=== PATIENT | female | born 1970 | race Caucasian/White ===

== ENCOUNTER 2017-02-13 20:23 | Emergency (ER) | payer SELFPAY ==
[2017-02-13 20:23] VITALS: BMI 21.1
[2017-02-13 20:37] VITALS: RESP 16; TEMP 98.5
[2017-02-13 22:22] LABS: BASO % 0.7 % (0.0-2.0); EOS # 0.2 K/uL (0.0-0.7); EOS % 4.1 % (0.0-4.0); HEMATOCRIT 32.4 % (34.0-47.0); LYMPH # 1.6 K/uL (1.0-4.3); LYMPH % 32.1 % (20.0-40.0); MEAN CORPUSCULAR HEMOGLOBIN 24.3 pg (27.0-31.0); MEAN CORPUSCULAR HGB CONC 31.1 g/dL (33.0-37.0); MEAN PLATELET VOLUME 7.9 fl (7.2-11.7); MONO % 18.6 % (0.0-10.0); NEUT # 2.3 K/uL (1.8-7.0); NEUT % 44.5 % (50.0-75.0); NRBC % 0.1 % (0.0-0.0); RED CELL DISTRIBUTION WIDTH 17.7 % (11.5-14.5); WHITE BLOOD COUNT 5.1 K/uL (4.8-10.8)
--- NOTE | 2017-02-13 22:29 | ED PDOC ---
HPI: Chest Pain Time Seen by Provider: 02/13/17 21:32 Chief Complaint (Nursing): Chest Pain History Per: Patient (presents for evaluation of chest pain that is intermittent and pressure like. She has a h/o hypertension but has been non- compliant with meds. She denies dizziness.) History/Exam Limitations: no limitations Onset/Duration Of Symptoms: Days (4), Waxing/Waning, Intermittent Episodes Current Symptoms Are (Timing): Still Present Severity: Moderate Quality: Pressure Associated Symptoms: denies: Nausea, Dyspnea, Diaphoresis, Syncope Modifying Factors: None Past Medical History Reviewed: Historical Data, Nursing Documentation, Vital Signs Vital Signs: Last Vital Signs Temp 98.5 F 02/13/17 20:35 Pulse 77 02/13/17 22:42 Resp 16 02/13/17 20:35 BP 153/107 H 02/13/17 22:42 Pulse Ox 100 02/13/17 23:08 - Medical History PMH: Anemia, HTN - Surgical History Surgical History: No Surg Hx - Family History Family History: States: No Known Family Hx, Hypertension - Living Arrangements Living Arrangements: With Family - Social History Current smoker - smoking cessation education provided: Yes - Immunization History Hx Tetanus Toxoid Vaccination: No Hx Influenza Vaccination: No Hx Pneumococcal Vaccination: No - Home Medications Home Medications: Ambulatory Orders Medication Instructions Recorded Ferrous Sulfate 325 mg PO BID #60 tab 12/10/13 Famotidine [Pepcid] 20 mg PO BID #14 tab 07/14/14 Lisinopril 10 mg DAILY 07/14/14 Cyclobenzaprine [Cyclobenzaprine 10 mg PO HS #14 tab 12/16/16 HCl] Losartan [Cozaar] 50 mg PO DAILY #30 tab 12/16/16 Naproxen 500 mg PO BID #28 tab 12/16/16 Losartan [Cozaar] 50 mg PO DAILY #30 tab 02/13/17 - Allergies Allergies/Adverse Reactions: Allergies Allergy/AdvReac Type Severity Reaction Status Date / Time No Known Allergies Allergy Verified 02/13/17 20:35 ENRRIQUE Risk Score for UA/NSTEMI - ENRRIQUE Risk Score Age > 64: NO 3 or more CAD Risk Factors: NO Known CAD (Stenosis greater than 50%): NO Aspirin use in past 7 days: NO Severe Angina: NO EKG ST changes greater than 0.5mm: NO Positive Cardiac Marker: NO ENRRIQUE Score: 0 Risk %: 5% Review of Systems ROS Statement: Except As Marked, All Systems Reviewed And Found Negative Cardiovascular: Positive for: Chest Pain. Negative for: Palpitations Respiratory: Negative for: Cough, Shortness of Breath, SOB with Exertion Physical Exam - Reviewed Nursing Documentation Reviewed: Yes Vital Signs Reviewed: Yes - Physical Exam Appears: Positive for: Well, Non-toxic, No Acute Distress Head Exam: Positive for: ATRAUMATIC, NORMAL INSPECTION, NORMOCEPHALIC Skin: Positive for: Normal Color, Warm, DRY Eye Exam: Positive for: EOMI, Normal appearance, PERRL ENT: Positive for: Normal ENT Inspection Neck: Positive for: Normal, Painless ROM Cardiovascular/Chest: Positive for: Regular Rate, Rhythm Respiratory: Positive for: CNT, Normal Breath Sounds Gastrointestinal/Abdominal: Positive for: Normal Exam, Bowel Sounds, Soft Back: Positive for: Normal Inspection Extremity: Positive for: Normal ROM Neurologic/Psych: Positive for: Alert, Oriented - Laboratory Results Result Diagrams: 02/13/17 21:13 02/13/17 21:13 - ECG O2 Sat by Pulse Oximetry: 100 Medical Decision Making Medical Decision Making: patient is asymptomatic. labs and EKG are normal. Will d/c with followup in the clinic. Will give rx for amlodipine. Disposition - Clinical Impression Clinical Impression: Chest pain - Patient ED Disposition Is Patient to be Admitted: No Doctor Will See Patient In The: Office Counseled Patient/Family Regarding: Diagnosis, Need For Followup, Rx Given - Disposition Referrals: [facility] [Outside] [facility] [Outside] Disposition: Routine/Home Disposition Time: 22:05 Condition: STABLE Prescriptions: Losartan [Cozaar] 50 mg PO DAILY #30 tab Instructions: Hypertension (ED) Print Language: ERITREAN - POA Present On Arrival: None
[2017-02-13 22:35] LABS: BLOOD UREA NITROGEN 25 mg/dl (7-17); CALCIUM 8.9 mg/dL (8.4-10.2); CARBON DIOXIDE 24 mmol/L (22-30); CHLORIDE 105 mmol/L (98-107); GFR AFRICAN-AMERICAN > 60; GLUCOSE,RANDOM 86 mg/dL (65-105); POTASSIUM 3.8 MMOL/L (3.6-5.0); SODIUM 140 mmol/l (132-148)
[2017-02-13 22:43] VITALS: BP 153/107
[2017-02-13 23:05] VITALS: O2SAT 100
[2017-02-13 23:28] VITALS: PULSE 72
== END 2017-02-13 23:20 | disposition home or self-care (01) ==
LOC: H.ER 20:23
DX: R07.9 Chest pain, unspecified (principal); I10 Essential (primary) hypertension; F17.200 Nicotine dependence, unspecified, uncomplicated